=== PATIENT | male | born 2005 | race Caucasian/White ===

== ENCOUNTER 2023-09-02 07:55 | Emergency (ER) | payer OTHER ==
[2023-09-02] MEDS ORDERED: NORCO, ANEXSIA 5/325MG TABLET (HYDROcodone/ACETAMINOPHEN) As Ordered ONE (11:30)
== END 2023-09-02 18:00 | disposition home or self-care (01) ==
LOC: M ED 07:55
DX: M54.50 Low back pain, unspecified (principal); Z53.9 Procedure and treatment not carried out, unspecified reason